=== PATIENT | male | born 1955 | race American Indian/Alaskan Native ===

== ENCOUNTER 2021-05-14 09:57 | Emergency (ER) | payer MEDICARE ==
--- NOTE | 2021-05-14 10:45 | Emergency Department Report ---
Blank Doc - Documentation Documentation: 65-year-old male that presents with dizziness, near syncope, unstable gait, and blurry vision that started last night. Also has c/o of SOB with chest tightness. Patient stated had near syncope earlier today. Patient stated last known time was last night. HX of cardiac and stroke. 1- This is a initial triage assessment/medical screening only. Full assessment and work-up will be completed once the patient is in proper hospital gown, ED bed and in a private room setting. This initial assessment/diagnostic orders/clinical plan/ treatment(s) is/are subject to change based on pt's health status, clinical progression and re-assessment by fellow clinical providers in the ED. Further treatment and workup at subsequent clinical providers discretion. Patient/guardians urged not to elope from ED as their condition may be serious if not clinically assessed and managed. 2-stroke and cardiac protocol initiated The patient was evaluated in the emergency department for symptoms described in the history of present illness. He/she was evaluated in the context of the glob al COVID-19 pandemic, which necessitated consideration that the patient might be at risk for infection with the virus that causes COVID-19. Institutional protocols and algorithms that pertain to the evaluation of patients at risk for COVID-19 are in a state of rapid change based on information released by regulatory bodies including the CDC and federal and state organizations. These policies and algorithms were followed during the patient's care in the emergency department. Please note that these policies, procedures and recommendations changed on a rapid basis.
[2021-05-14 10:57] LABS: Hematocrit 44.1 % (35.5-45.6); Hemoglobin 14.8 gm/dl (11.8-15.2); Mean Corpuscular HGB Conc 34 % (32-34); Mean Corpuscular Volume 105 fl (84-94); Platelet Count 115 K/mm3 (140-440); Red Cell Distribution Width 14.8 % (13.2-15.2)
--- NOTE | 2021-05-14 11:04 | Emergency Department Report ---
ED General Adult HPI - General Chief complaint: Dizziness Stated complaint: passed out high blood pressure Time Seen by Provider: 05/14/21 10:25 Source: patient Mode of arrival: Ambulatory Limitations: No Limitations - History of Present Illness Initial comments: Patient presents from an outside care facility secondary to dizziness and lightheadedness. History from him is somewhat disjointed. He talks about things that happened last week intermixed with things that happened today and then reverts to things that happened in the past. He states basically that he has felt dizzy and lightheaded for the last day. This morning when he woke up he was also dizzy and lightheaded. He went to eat something and thought it was because his blood sugar might be low. The staff checked his blood pressure and told him his blood pressure was high. He had reported seeing 3 of everything. He was not having diplopia. Patient did not have speech deficit. He did not have focal weakness. He states that he just felt dizzy upon standing. The staff told him that once his blood pressure was down, they would bring him to the hospital. Once arriving here, a code stroke had been activated. Patient states that this was not like the strokes he had had previously. He states that those he had speech problems both times. He states that he has had 2 strokes before. He then goes on to relate a history of having a blood clot on the brain that "almost exploded." He reports that he was in [place] for 8 days because of this. Again, he has had speech problems with his prior strokes. Has no speech problems today. He has not noticed any unilateral weakness. He told me that he did not have any chest pain but told the [facility] that he did. He is not actively having chest pain at this time. Patient has no cough or congestion. He has had no numbness or tingling in the arm or leg. There has been no dysarthria. He describes prior expressive aphasia but has no evidence of expressive aphasia today. - Related Data Allergies Allergy/AdvReac Type Severity Reaction Status Date / Time No Known Allergies Allergy Verified 05/14/21 10:46 ED Review of Systems ROS: Stated complaint: passed out high blood pressure Other details as noted in HPI Comment: All other systems reviewed and negative Constitutional: denies: fever Eyes: denies: eye pain ENT: denies: throat pain Respiratory: denies: cough Cardiovascular: denies: palpitations, dyspnea on exertion Endocrine: denies: unexplained weight loss Gastrointestinal: denies: abdominal pain Genitourinary: denies: dysuria Musculoskeletal: denies: back pain Skin: denies: rash Neurological: as per HPI Psychiatric: anxiety (Chronically) Hematological/Lymphatic: denies: easy bruising ED Past Medical Hx - Past Medical History Hx Hypertension: Yes Hx CVA: Yes Hx Congestive Heart Failure: Yes Additional medical history: heart failure - Family History Family history: hypertension ED Physical Exam - General Limitations: No Limitations, Other (Pulse ox is noted. He is not hypoxic.) General appearance: alert, in no apparent distress, anxious - Head Head exam: Present: atraumatic, normocephalic, normal inspection - Eye Eye exam: Present: normal appearance, PERRL, EOMI. Absent: scleral icterus - ENT ENT exam: Present: normal exam, normal orophraynx, mucous membranes moist - Neck Neck exam: Present: normal inspection. Absent: meningismus - Respiratory Respiratory exam: Present: normal lung sounds bilaterally. Absent: respiratory distress - Cardiovascular Cardiovascular Exam: Present: regular rate, normal rhythm - GI/Abdominal GI/Abdominal exam: Present: soft. Absent: tenderness - Extremities Exam Extremities exam: Present: normal capillary refill. Absent: pedal edema - Back Exam Back exam: Absent: CVA tenderness (R), CVA tenderness (L) - Neurological Exam Neurological exam: Present: alert, oriented X3, CN II-XII intact, normal gait, reflexes normal, other (NIH score is 0. This was completed at 10:55 AM.). Absent: motor sensory deficit - Psychiatric Psychiatric exam: Present: normal affect, normal mood - Skin Skin exam: Present: warm, dry ED Course Vital Signs 05/14/21 05/14/21 05/14/21 10:14 11:32 11:36 Temperature 97.3 F L 98.2 F Pulse Rate 70 Respiratory 18 Rate Blood Pressure 134/56 O2 Sat by Pulse 99 97 Oximetry 05/14/21 05/14/21 05/14/21 11:42 11:45 12:01 Temperature 98.1 F Pulse Rate 57 L 57 L Respiratory 15 21 18 Rate Blood Pressure 158/87 117/64 O2 Sat by Pulse 100 100 99 Oximetry 05/14/21 12:15 Temperature Pulse Rate 67 Respiratory 13 Rate Blood Pressure 117/64 O2 Sat by Pulse 100 Oximetry - Reevaluation(s) Reevaluation #1: 05/14/21 11:04 Patient had been seen upfront. Stroke alert had already been activated. Based on his symptoms, his NIH score, and his lack of deficit, I do not believe he would be a thrombolytic candidate. He also seems to describe having a blood clot on the brain which would be contraindicated for thrombolytics. Reevaluation #2: 05/14/21 12:31 Case was discussed with the neurologist. We agreed that this is not likely a stroke and would not benefit from intervention or be a candidate for thrombolytic therapy. We will cancel the stroke protocols and alert. Labs of been reviewed. Case was discussed with radiologist. There is no evidence of bleed on CT. At this time, I do believe patient can be discharged. He does have an acute kidney injury and IV fluids have been administered. ED Medical Decision Making - Lab Data Result diagrams: 05/14/21 10:47 05/14/21 10:47 - EKG Data 05/14/21 12:32 Rhythm strip: Normal sinus rhythm without ectopy. Monitor observe 10 seconds. - Radiology Data Radiology results: report reviewed - Medical Decision Making Patient presents as a possible stroke alert. He was dizzy and lightheaded but had no other strokelike symptoms. This was not similar to prior stroke. CT failed to demonstrate any acute pathology. Case and been discussed with the neurologist and the patient would not be a candidate for thrombolytic therapy. Labs have been reviewed. He has been given IV hydration. Etiology for the symptoms of feeling dizzy and lightheaded could certainly be related to his dehydration and acute kidney injury. He does not appear to have any infectious pathology. There is no other metabolic derangement. He is not hypoglycemic. Patient was treated symptomatically and referred for outpatient evaluation. Critical Care Time: No Critical care attestation.: If time is entered above; I have spent that time in minutes in the direct care of this critically ill patient, excluding procedure time. ED Disposition Clinical Impression: Lightheaded, Vision disturbance, IRENE (acute kidney injury) Disposition: 01 HOME / SELF CARE / HOMELESS Is pt being admited?: No Does the pt Need Aspirin: No Condition: Stable Instructions: Near-Syncope, Acute Kidney Injury, Adult, Dizziness, [id number], Visual Disturbances Additional Instructions: Drink plenty water. Continue medication. Return for problems. Follow-up with your regular doctor for recheck and further management.
[2021-05-14 11:11] LABS: Albumin 4.3 g/dL (3.9-5); Calcium 8.8 mg/dL (8.4-10.2)
--- NOTE | 2021-05-14 11:19 | XRay Report ---
CHEST 2 VIEWS INDICATION: Chest Pain. COMPARISON: None FINDINGS: SUPPORT DEVICES: None. HEART: Within normal limits. LUNGS/PLEURA: Minimal streaky left basilar atelectasis versus scarring with otherwise clear lungs. No pneumothorax. ADDITIONAL FINDINGS: None. IMPRESSION: 1. No acute findings. Signer Name: Lex Phelps MD Signed: 05/14/2021 11:14 AM Workstation Name: [id number]
--- NOTE | 2021-05-14 11:34 | Cat Scan Report ---
CT head without contrast INDICATION : CODE STROKE CALL ER MAIN AT 8199 Stroke symptoms. TECHNIQUE: Axial imaging performed from the skull apex through the skull base without the use of con trast. All CT scans at this location are performed using CT dose reduction for ALARA by means of aut omated exposure control. COMPARISON: None FINDINGS: Parenchyma: No acute intracranial hemorrhage or parenchymal abnormality. Ventricles: Ventricles are normal in size and appear symmetric. Soft tissues: Soft tissues including the orbits appear normal. Bones: No acute osseous abnormality. Sinuses: Sinuses and mastoid air cells are clear. IMPRESSION: No acute abnormality. COMMUNICATION: Time of Communication (INTERVENTIONAL PHYSICIAN/CDT): 10:30 AM Licensed Practitioner Receiving Report: Dr. Becker Signer Name: Lex Phelps MD Signed: 05/14/2021 11:30 AM Workstation Name: [id number]
[2021-05-14] MEDS ORDERED: SODIUM CHLORIDE 0.9% 1000 ML 1,000 ML IV ONE (11:47)
[2021-05-14] MEDS ORDERED: hydrALAZINE 25 MG TAB PO ONE (12:37)
[2021-05-14 12:42] LABS: Amphetamine Screen,Urine PRESUMPTIVE NEGATIVE; Benzodiazepines Screen,Urine PRESUMPTIVE NEGATIVE; Cannabinoid Screen,Urine PRESUMPTIVE POSITIVE; Cocaine Screen,Urine PRESUMPTIVE NEGATIVE; Methadone Screen,Urine PRESUMPTIVE NEGATIVE; Opiate Screen,Urine PRESUMPTIVE NEGATIVE
[2021-05-14 12:47] LABS: Bilirubin,Urine NEG (Negative); Blood,Urine SM (Negative); Color,Urine Straw (Yellow); Mucus,Urine FEW /HPF; Protein,Urine <15 mg/dL mg/dL (Negative); Urobilinogen,Urine < 2.0 mg/dL (<2.0)
[2021-05-14 13:32] LABS: INR 1.01 (0.87-1.13)
[2021-05-14 13:33] LABS: Partial Thromboplastin Time 27.6 Sec. (24.2-36.6); Thrombin Time 17.7 Sec. (15.1-19.6)
[2021-05-14 13:37] VITALS: BP 166/110
[2021-05-14 16:59] LABS: Platelet Estimate Consistent w Auto; RBC Morphology Normal; Total Cells Counted 100
== END 2021-05-14 13:37 | disposition home or self-care (01) ==
LOC: ED 09:57
DX: N17.9 Acute kidney failure, unspecified (principal); R42 Dizziness and giddiness; H53.9 Unspecified visual disturbance; I10 Essential (primary) hypertension; Z86.79 Personal history of other diseases of the circulatory system
CPT/HCPCS: 36415; 70450; 71046; 80053; 80307; 81001; 82550; 82553; 84484; 85007; 85025; 85610; 85670; 85730; 99284